=== PATIENT | male | born 1975 | race Caucasian/White ===

== ENCOUNTER 2019-11-12 07:44 | Emergency (ER) | payer MEDICAID ==
[~2019-11-12] VITALS: Ht 177.8 cm; Wt 81.6 kg
[2019-11-12 08:00] VITALS: BP_SYST 111
--- NOTE | 2019-11-12 08:00 | NUR ---
Pt came to ER for ok to book after being arrested this morning at 0330 for possession of firearm.Pt has hx of diabetes, blood sugar 365, cooperative, VSS.
--- NOTE | 2019-11-12 08:00 | NUR ---
Patient to ER bed ch1 to gown for evaluation. Side rails up.
--- NOTE | 2019-11-12 08:10 | NUR ---
ER at bedside examining patient.
[2019-11-12] MEDS ORDERED: NACL 0.9% 1,000 ML IV ONE (08:15)
[2019-11-12] MEDS ORDERED: INSULIN REGULAR, HUMAN 10 UNITS/0.1 ML INJ IVP ONE (08:15)
--- NOTE | 2019-11-12 08:15 | NUR ---
22 gauge angiocath placed to R wrist. Use of asceptic technique. Opsite placed over site. Blood return noted. Blood for lab drawn from site. Flushed with 10 cc of normal saline. No evidence of infiltration noted. Patient tolerated well.
--- NOTE | 2019-11-12 08:15 | NUR ---
Medicated per MD orders. IVF infusing with no s/s of infiltration at this time. Will cont to monitor
[2019-11-12 09:40] VITALS: BP_SYST 111
== END 2019-11-12 09:40 ==
LOC: SED 07:44
DX: S91.301A Unspecified open wound, right foot, initial encounter (principal); E11.65 Type 2 diabetes mellitus with hyperglycemia; X58.XXXA Exposure to other specified factors, initial encounter; Y93.89 Activity, other specified; Y92.89 Other specified places as the place of occurrence of the external cause; Y99.8 Other external cause status
CPT/HCPCS: 96361; 96374; 99283; J1815; J7030